=== PATIENT | male | born 1970 | race Caucasian/White ===

== ENCOUNTER → 2016-10-24 | Emergency (ER) | payer OTHER ==
[~2016-10-24] VITALS: Ht 180.3 cm; Wt 147.9 kg
[2016-10-24 13:55] LABS: BASO % 0.4 % (0.0-1.0); EOS # 0.1 10*3/uL (0.0-0.4); EOS % 1.8 % (1.0-4.0); HEMATOCRIT 47.5 % (42.0-52.0); HEMOGLOBIN 15.7 g/dl (14.0-18.0); LYMPH # 2.9 10*3/uL (1.3-4.4); LYMPH % 36.8 % (27.0-41.0); MEAN CELL VOLUME 87.8 fl (80.0-94.0); MEAN CORPUSCULAR HGB CONC 33.1 g/dl (33.0-37.0); MEAN PLATELET VOLUME 10.2 fl (9.6-12.3); MONO # 0.5 10*3/uL (0.1-1.0); MONO % 6.5 % (3.0-9.0); NEUT # 4.2 10*3/uL (2.3-7.9); PLATELET COUNT AUTOMATED 220 10*3/uL (130-400); RED BLOOD COUNT 5.41 10*6/uL (4.50-5.90); RED CELL DISTRI WIDTH 13.7 % (0-14.5); WHITE BLOOD COUNT 7.9 10*3/uL (4.8-10.8)
[2016-10-24 14:12] LABS: ALBUMIN 3.8 gm/dl (3.1-4.5); ALKALINE PHOSPHATASE 65 U/L (45-117); BUN 6 mg/dl (7-24); CHLORIDE 100 mmol/L (98-107); CREATININE 0.81 mg/dL (0.70-1.30); LIPASE 316 U/L (73-393); POTASSIUM 3.9 mmol/L (3.5-5.1); SGOT/AST 38 IU/L (3-35); SGPT/ALT 67 U/L (12-78); SODIUM 137 mmol/L (136-145); TOTAL PROTEIN 7.7 gm/dL (6.4-8.2)
[2016-10-24 17:01] LABS: BILIRUBIN NEGATIVE (NEGATIVE); BLOOD NEGATIVE (NEGATIVE); CLARITY CLEAR (CLEAR); COLOR YELLOW (YELLOW); GLUCOSE 3+ (NEGATIVE); KETONE NEGATIVE (NEGATIVE); LEUKO ESTERASE NEGATIVE (NEGATIVE); NITRITE NEGATIVE (NEGATIVE); SPECIFIC GRAVITY <= 1.005 (1.005-1.030)
[2016-10-24 17:10] LABS: BACTERIA 1+; EPITHELIAL CELLS 0-2; RBC 0-2 rbc/hpf (0-2)
== END ==
LOC: ED 13:24
PROVIDERS: Emergency Medicine
DX: R10.84 Generalized abdominal pain (principal); R11.2 Nausea with vomiting, unspecified; R19.7 Diarrhea, unspecified; Z88.0 Allergy status to penicillin

== ENCOUNTER → 2016-11-30 | Outpatient (CLI) | payer OTHER | END | disposition home or self-care (01) | LOC: MRI 07:00 | DX: Z53.9 Procedure and treatment not carried out, unspecified reason (principal) ==

== ENCOUNTER 2016-12-14 11:29 | Emergency (ER) | payer OTHER ==
[~2016-12-14] VITALS: Ht 180.3 cm; Wt 146.1 kg
== END 2016-12-14 14:31 | disposition home or self-care (01) ==
LOC: ED 11:29
DX: S96.912A Strain of unspecified muscle and tendon at ankle and foot level, left foot, initial encounter (principal); Z88.0 Allergy status to penicillin; X50.9XXA Other and unspecified overexertion or strenuous movements or postures, initial encounter; Y93.89 Activity, other specified; Y92.9 Unspecified place or not applicable; Y99.9 Unspecified external cause status

== ENCOUNTER → 2016-12-14 | Outpatient (CLI) | payer OTHER | END | disposition home or self-care (01) | LOC: WOUNDCARE 10:36 | DX: E11.621 Type 2 diabetes mellitus with foot ulcer (principal); L97.422 Non-pressure chronic ulcer of left heel and midfoot with fat layer exposed; E03.9 Hypothyroidism, unspecified; I10 Essential (primary) hypertension; Z87.891 Personal history of nicotine dependence ==

== ENCOUNTER → 2016-12-21 | Outpatient (CLI) | payer OTHER | END | disposition home or self-care (01) | LOC: WOUNDCARE 04:21 | DX: E11.621 Type 2 diabetes mellitus with foot ulcer (principal); L97.521 Non-pressure chronic ulcer of other part of left foot limited to breakdown of skin; E03.9 Hypothyroidism, unspecified; I10 Essential (primary) hypertension; Z87.891 Personal history of nicotine dependence ==

== ENCOUNTER → 2016-12-28 | Outpatient (CLI) | payer OTHER | END | disposition home or self-care (01) | LOC: WOUNDCARE 03:34 | DX: E11.621 Type 2 diabetes mellitus with foot ulcer (principal); L97.422 Non-pressure chronic ulcer of left heel and midfoot with fat layer exposed; E03.9 Hypothyroidism, unspecified; I10 Essential (primary) hypertension; Z87.891 Personal history of nicotine dependence ==

== ENCOUNTER → 2017-01-04 | Outpatient (CLI) | payer OTHER | END | disposition home or self-care (01) | LOC: WOUNDCARE 04:24 | DX: E11.621 Type 2 diabetes mellitus with foot ulcer (principal); L97.422 Non-pressure chronic ulcer of left heel and midfoot with fat layer exposed; I10 Essential (primary) hypertension; E03.9 Hypothyroidism, unspecified; Z87.891 Personal history of nicotine dependence ==

== ENCOUNTER → 2017-01-11 | Outpatient (CLI) | payer OTHER | END | disposition home or self-care (01) | LOC: WOUNDCARE 01:05 | DX: E11.621 Type 2 diabetes mellitus with foot ulcer (principal); L97.422 Non-pressure chronic ulcer of left heel and midfoot with fat layer exposed; I10 Essential (primary) hypertension; E03.9 Hypothyroidism, unspecified; Z87.891 Personal history of nicotine dependence ==

== ENCOUNTER → 2017-03-24 | Outpatient (CLI) | payer OTHER | END | disposition home or self-care (01) | LOC: RAD 14:40 | DX: Z01.818 Encounter for other preprocedural examination (principal); Z01.82 Encounter for allergy testing; I10 Essential (primary) hypertension; E11.9 Type 2 diabetes mellitus without complications; Z87.891 Personal history of nicotine dependence ==

== ENCOUNTER 2017-12-09 12:53 | Emergency (ER) | payer OTHER ==
[~2017-12-09] VITALS: Ht 182.8 cm; Wt 131.1 kg
--- NOTE | ~2017-12-09 | EKG ---
[place], [place] ELECTROCARDIOGRAM REPORT NAME: GUALBERTO KENNEDY JR UNIT #: [id number] ROOM: DOCTOR: JOSE DRAFT REPORT BIRTHDATE: [birth year] [facility] Test Date: 2017-12-09 Test Time: 13:11:03 Pat Name: GUALBERTO KENNEDY Department: Room: Gender: User Interface Developer: JONATHAN : 1970 Requested By: TOMI FRANKEL Order Number: [id number] Reading MD: Measurements Intervals [place] Rate: 85 P: 53 IN: 142 QRS: -60 QRSD: 148 T: -18 QT: 373 QTc: 444 Interpretive Statements Sinus rhythm Atrial premature complex RBBB and LAFB Baseline wander in lead(s) V1,V2 Compared to ECG 10/04/2017 10:27:05 No significant changes CM:EKGRPT:ELECTROCARDIOGRAM REPORT 1311 1013 TOMI GARCIA DRAFT REPORT TOMI FRANKEL MD
[~2017-12-09 12:53] MED LIST: AMARYL4 MG PO; CEFEPIME2 GM IJ; CYCLOBENZAPRINE10 MG PO; EFFEXOR XR75 M1 PO; FARXIGA10 M1 PO; FLONASE ALLERG9.9 ML NAS; HYDROCODONE-AC1 EAC1 PO; LISINOPRIL-HCT1 EACH PO; LISINOPRIL20 MG PO; LOVASTATIN20 MG PO; MOBIC15 MG PO; NEURONTIN300 MG PO; NORCO 5-325 TA1 EACH PO; PERCOCET 7.5-31 EACH PO; SOMA350 MG PO; Synthroid,Lev100 MCG PO; THERA TABLET400 MCG PO; TRESIBA FL100 UNIT/1 SQ; VANCO 1.751.75 GM/25 IV; [UNRECOGNIZED DRUG - OTHER] PO
[2017-12-09 13:38] LABS: HEMATOCRIT 41.5 % (42.0-52.0); MEAN CORPUSCULAR HGB 28.3 pg (27.0-31.0); MEAN CORPUSCULAR HGB CONC 33.7 g/dl (33.0-37.0); MEAN PLATELET VOLUME 9.4 fl (9.6-12.3); PLATELET COUNT AUTOMATED 325 10*3/uL (130-400); RED BLOOD COUNT 4.94 10*6/uL (4.50-5.90); RED CELL DISTRI WIDTH 14.1 % (0-14.5); WHITE BLOOD COUNT 14.6 10*3/uL (4.8-10.8)
[2017-12-09 13:47] LABS: ACT PARTIAL THROMBO TIME 28.2 SECONDS (20.8-31.5); INTERNATIONAL NORM RATIO 1.1 (2.0-3.5)
[2017-12-09 13:50] LABS: BILIRUBIN 1+ (NEGATIVE); BLOOD 2+ (NEGATIVE); CLARITY SL CLOUDY (CLEAR); COLOR YELLOW (YELLOW); GLUCOSE 1+ (NEGATIVE); KETONE TRACE (NEGATIVE); LEUKO ESTERASE NEGATIVE (NEGATIVE); NITRITE NEGATIVE (NEGATIVE)
[2017-12-09 13:54] LABS: ALBUMIN 2.6 gm/dl (3.1-4.5); ALKALINE PHOSPHATASE 87 U/L (45-117); BUN 10 mg/dl (7-24); CHLORIDE 88 mmol/L (98-107); CREATININE 0.65 mg/dL (0.70-1.30); POTASSIUM 3.4 mmol/L (3.5-5.1); SGOT/AST 39 IU/L (3-35); SGPT/ALT 38 U/L (12-78); SODIUM 129 mmol/L (136-145); TOTAL PROTEIN 8.3 gm/dL (6.4-8.2)
[2017-12-09 13:57] LABS: ATYPICAL LYMPHS 1 % (0-0); PLATELET SUFFICIENCY NORMAL (NORMAL); TOTAL CELLS COUNTED 100 #CELLS
[2017-12-09 14:05] LABS: TROPONIN I < 0.015 ng/ml (<0.045)
[2017-12-18 13:09] LABS: ORGANISM ID Final report (.)
== END 2017-12-09 16:15 | disposition short-term general hospital (02) ==
LOC: ED 12:53
PROVIDERS: Emergency Medicine
DX: E87.1 Hypo-osmolality and hyponatremia (principal); R78.81 Bacteremia; D72.829 Elevated white blood cell count, unspecified; M00.851 Arthritis due to other bacteria, right hip; E11.65 Type 2 diabetes mellitus with hyperglycemia; I10 Essential (primary) hypertension; E78.5 Hyperlipidemia, unspecified; Z79.4 Long term (current) use of insulin; Z79.899 Other long term (current) drug therapy; Z91.012 Allergy to eggs; Z88.1 Allergy status to other antibiotic agents; Z88.8 Allergy status to other drugs, medicaments and biological substances